=== PATIENT | female | born 1950 | race Caucasian/White ===

== ENCOUNTER 2021-09-15 09:25 | Inpatient (IN) | payer MEDICARE ==
[~2021-09-15] VITALS: Ht 162.6 cm; Wt 60.3 kg
[2021-09-15] MEDS ORDERED: THYROID MEDICATION (09:36)
--- NOTE | 2021-09-15 12:10 | NUR ---
pt transfered to [facility] in stable condition.
[2021-09-15 12:15] VITALS: BP 164/99
[2021-09-15 16:00] VITALS: BP 172/110
[2021-09-15] MEDS: OLANZAPINE 2.5 MG TABLET PO SCH (19:00)
[2021-09-15] MEDS: DIVALPROEX 125 MG TABLET.DR PO SCH (21:52)
[2021-09-15] MEDS ORDERED: ACETAMINOPHEN 325 MG TABLET PO PRN (23:00)
[2021-09-15] MEDS ORDERED: MAG HYDROX/AL HYDROX/SIMETH 30 ML LIQUID UDC PO PRN (23:00)
[2021-09-15] MEDS ORDERED: ZOLPIDEM 5 MG TABLET PO PRN (23:00)
[2021-09-15] MEDS ORDERED: MAGNESIUM HYDROXIDE 30 ML LIQUID UDC PO PRN (23:00)
--- NOTE | 2021-09-16 04:08 | NUR ---
Received the patient at the start of the shift, walking around in and out of various rooms. Patient was confused and argumentative. Refusing medications and not able to state where she is or why she is here. Despite frequent redirecting, there were minimal results. The patient is up at this time, very little sleep. Paranoid and anxious. Continuing to monitor the patient for safety, reorient as needed and encourage medication compliance.
[2021-09-16 07:30] VITALS: BP 168/95
[2021-09-16] MEDS: DIVALPROEX 125 MG TABLET.DR PO SCH ×2 (09:00→20:53)
[2021-09-16] MEDS: OLANZAPINE 2.5 MG TABLET PO SCH ×2 (09:00→17:22)
--- NOTE | 2021-09-16 10:34 | NUR ---
Firearms Report Second Rigger completed and submitted a [employer] firearms report for 5150 grave disability certifications. A copy of report has been placed in patient chart.
--- NOTE | 2021-09-16 10:45 | NUR ---
Gps/Marketing Communication Manager- Spoke to Reginaldo () requesting to be called at [phone] (cell phone ) Requesting to to talk to Psychiatrist (Dr Menendez) Reassure will inform the Doctor.
[2021-09-16] MEDS ORDERED: OLAN2.5T3 PO (13:17)
[2021-09-16] MEDS ORDERED: HYDR-894 PO (13:17)
--- NOTE | 2021-09-16 14:22 | NUR ---
STEVE Initial Discharge Note Pt currently resides at home at at [address], [place], [place] [address] ([phone]) with her , Jarett Simpson (Skip) ([phone]). Per pt, she would like to be discharged home. Per pt's , he is unable to care for pt safely at home until she gets better. STEVE will continue to work with pt, family, and MD to ensure a safe and proper discharge.
--- NOTE | 2021-09-16 14:23 | NUR ---
SW Family Contact SW spoke with patient's Jarett "Reginaldo" Calvin ([phone]; [phone]) and discussed treatment and discharge plan. Jarett provided collateral information. Jarett states he is unable to care for pt safely in the home until she gets better.
--- NOTE | 2021-09-16 14:25 | NUR ---
SW Care Coordination Received voice mail from Paola ([phone]), hospital liaison with [facility] to establish contact. SW called and left message requesting call back.
[2021-09-16 16:30] VITALS: BP 168/102
[2021-09-16] MEDS: hydrALAZINE HCL 25 MG TABLET PO SCH (17:21)
--- NOTE | 2021-09-16 17:22 | NUR ---
Gps/Coil Connector Repairer- Noted patient interacting with her roommate. Elevated b/p 168/102 HR 92 02 sat 98 , offered hydralazine 10 mg. 1 tab. po. hesitant to take meds., encouraged to take her routine meds, claimed she does not take any medications at home, confused, claimed is waiting outside to take her home. Constant reorientation provided
[2021-09-16 18:52] VITALS: BP 147/89
[2021-09-16 20:45] VITALS: BP 145/71
[2021-09-17 07:30] VITALS: BP 154/96
[2021-09-17] MEDS: hydrALAZINE HCL 25 MG TABLET PO SCH ×2 (09:16→17:00)
[2021-09-17] MEDS: OLANZAPINE 2.5 MG TABLET PO SCH ×2 (09:16→17:00)
[2021-09-17] MEDS: DIVALPROEX 125 MG TABLET.DR PO SCH ×2 (09:16→20:48)
[2021-09-17] MEDS: CEphaleXIN 500 MG CAPSULE PO SCH ×3 (11:30→20:49)
[2021-09-17] MEDS: LORAZEPAM 1 MG TABLET PO PRN (13:21)
--- NOTE | 2021-09-17 14:11 | NUR ---
Gps/Emergency Vehicle Driver- Confused , disorganized, refusing oral abx , revieed with patient, gets angry, argumentative, claimed she does not need anything, "you kept pushing medications i dont need" When tried to explained patient gets loud and upset, noted patient tearing up papers/magazines .putting it in her pocket
--- NOTE | 2021-09-17 17:51 | NUR ---
Gps/Hvac Commercial Salesperson - Refusing Vital signs, refusing pm. routine meds. , anxious, digging into the trash , claimed she is ready to leave now., confused, disoriented, difficulty redirecting patient.
[2021-09-17] MEDS ORDERED: diphenhydrAMINE 50 MG/1 ML VIAL IM ONE (20:00)
[2021-09-17] MEDS ORDERED: HALOPERIDOL LACTATE 5 MG/1 ML VIAL IM ONE (20:00)
[2021-09-17] MEDS ORDERED: LORAZEPAM 2 MG/1 ML VIAL IM ONE (20:00)
--- NOTE | 2021-09-17 23:45 | NUR ---
Received the patient at the start of the shift, labile, combative and in a psychosis. The patient destroyed the room, throwing trash all over, stripping the blankets and sheets off her bed , as well as striking out at staff. This typewriters functional tester was not able to have any reasonable verbal exchange with this patient due to the patients confusion and elevated state. Multiple attempts to deescalate this situation were attempted. The FARM IMPLEMENT ENGINE MECHANIC working for Dr. Talley was notified and orders were received for a one time IM injection. Security was needed and the patient was combative and argumentative despite being approached calmly and provided a full explanation of the procedure. The injection was given without any problems and less than a minute of hands. The patients VS were elevated on the first check, but did become normal when reassessed a short time later. Eventually this patient calmed down, ate a snack and was able to relax and rest. Frequent rounding is being done during this shift. Bed alarm is on and Safety Stratiges are in place at this time. Continuing to monitor for behavior escalation and provide for any needs that may arise.
--- NOTE | 2021-09-18 03:00 | NUR ---
The patient refused all oral medications this shift. Encouragement and education were provided.
[2021-09-18 08:30] VITALS: BP 156/91
[2021-09-18] MEDS: hydrALAZINE HCL 25 MG TABLET PO SCH ×2 (08:31→17:00)
[2021-09-18] MEDS: DIVALPROEX 125 MG TABLET.DR PO SCH ×2 (08:31→21:00)
[2021-09-18] MEDS: OLANZAPINE 2.5 MG TABLET PO SCH ×2 (08:36→17:00)
[2021-09-18] MEDS: CEphaleXIN 500 MG CAPSULE PO SCH ×2 (08:38→21:00)
[2021-09-18] MEDS: ENSURE ENLIVE (VAN) 240 ML LIQUID PO SCH ×2 (13:00→17:00)
--- NOTE | 2021-09-18 22:30 | NUR ---
received patient in the hallway. she is noted A/O x 1. she is noted with disorganized speech, easily irritable, non-compliant with plan of care nd medication regiment. impaired insight and judgment is noted as to the reason for her admission to [facility]. She refused all her [facility] medications. she was informed of the importance to take medication for the improvement of her symptoms, yet refused. she also refused V/S. Patient was given PO fluids and snacks. she is reassured for her safety. safety and fall precaution in place. will continue to monitor.
[2021-09-19] MEDS: DIVALPROEX 125 MG TABLET.DR PO SCH ×2 (08:29→20:57)
[2021-09-19] MEDS: OLANZAPINE 2.5 MG TABLET PO SCH ×2 (08:29→17:32)
[2021-09-19] MEDS: CEphaleXIN 500 MG CAPSULE PO SCH (08:30)
[2021-09-19] MEDS: ENSURE ENLIVE (VAN) 240 ML LIQUID PO SCH ×3 (08:30→17:33)
[2021-09-19] MEDS: hydrALAZINE HCL 25 MG TABLET PO SCH ×2 (08:30→17:00)
[2021-09-19] MEDS ORDERED: levoFLOXacin 500 MG/D5W 500 MG in PREMIXED 1 EACH IV SCH (10:15)
[2021-09-19] MEDS ORDERED: levoFLOXacin 500 MG TABLET PO SCH (12:00)
[2021-09-19 12:54] LABS: *BILIRUBIN,URIN NEGATIVE (NEGATIVE); *BLOOD, URINE NEGATIVE (NEGATIVE); *CLARITY,URINE CLEAR (CLEAR); *COLOR,URINE YELLOW (YELLOW); *KETONES,URINE NEGATIVE (NEGATIVE); *UROBILINOGEN,URINE 0.2 E.U./dl (NORMAL); LEUKOCYTE ESTERASE ,URINE NEGATIVE (NEGATIVE); NITRITE, URINE NEGATIVE (NEGATIVE); UGLUCOSE NEGATIVE (NEGATIVE)
--- NOTE | 2021-09-19 15:00 | NUR ---
I was called to court hearing over the phone, with the reliability specialist, and [place] from patient's rights. Electrical Cad Technician granted 14 days hold for this patient under Gravely disabled criteria.
[2021-09-20] MEDS: OLANZAPINE 2.5 MG TABLET PO SCH ×2 (09:00→16:51)
[2021-09-20] MEDS: ENSURE ENLIVE (VAN) 240 ML LIQUID PO SCH ×3 (09:00→16:51)
[2021-09-20] MEDS: DIVALPROEX 125 MG TABLET.DR PO SCH ×2 (09:00→20:39)
[2021-09-20] MEDS: hydrALAZINE HCL 25 MG TABLET PO SCH ×2 (09:00→16:51)
--- NOTE | 2021-09-20 09:58 | NUR ---
GPS: Nursing Notes: Severe Agitation: Patient is awake and responding to her name, loud and pressured speech, overly disruptive by shouting and threatening staff, Slamming the nursing station door, went to the TV room and started to punch the TV screen, AWOL risk, shouting that she is leaving today..."The doctor discharge me today... You are a fucken liar..", redirected and reoriented, but unable to be redirected, restless behavior, paranoid behavior, refusing her medications, believes that we are poisoning her, loud and angry affect, continue to monitor for safety, Dr. Menendez called by the charge nurse, continue with treatment plan.
[2021-09-20] MEDS ORDERED: OLANZAPINE 10 MG VIAL IM ONE (10:00)
--- NOTE | 2021-09-20 10:11 | NUR ---
GPS: Nursing Notes: Chemical Restraint: Patient is awake and overly disruptive by shouting and threatening staff, slamming nursing station door, going into the dinning room and punching the TV screen, loud and angry affect, "I am going to get you for what you did last night..", "I am going to bhavana you..", AWOL risk, "I am leaving today... The doctor had discharge me...", paranoid, believes that staff is trying to poison her, refusing her medications, R=18, medication IM given at this time: Zyprexa 5mg IM STAT, continue to monitor for safety, continue with treatment plan.
--- NOTE | 2021-09-20 10:41 | NUR ---
GPS: Nursing Notes: Reassessment of Chemical Restraint: Patient is awake and responding to her name, patient became calm, stopped carrying around paper bag when walking the hallway, R=18, medication IM was effective, continue to monitor for safety, continue with treatment plan.
--- NOTE | 2021-09-20 14:37 | NUR ---
SW Care Coordination Note SW received voice mail from Paola with [facility] (phone: [phone]; fax: [phone]) informing pt is pending enrollment into [facility] services. Paola requested any updates regarding discharge and discharge paperwork upon pt discharge.
--- NOTE | 2021-09-20 17:35 | NUR ---
GPS: Nursing Notes: Non-Compliance With Medications: Patient is awake and responding to her name, paranoid behavior, refusing her medications, believes that we are trying to poison her, threatening staff with a law bhavana, believes that the psychiatrist had discharge today, walking around with her belongings in a paper bag, loud and angry affect, episode of slamming the nursing station door, gets easily irritable when redirected, believes that staff is lying to her, verbal abusive toward staff at times, stated, "Patient's right have told her not take her medications.. He is coming to talk with me..", continue to monitor for safety, unable to formulate a viable plan for self care, continue with treatment plan.
--- NOTE | 2021-09-21 06:48 | NUR ---
Slept intermittently. Woke up a few times to say "the children were keeping her up." When asked if she was hearing any voices, pt stated that she heard the children playing but did not give specific examples of dialogue. Pt provided with reorientation and was able to go back to sleep. Denies SI or HI. Safety provided. Will endorse to day shift.
[2021-09-21] MEDS: DIVALPROEX 125 MG TABLET.DR PO SCH ×2 (09:00→21:15)
[2021-09-21] MEDS: hydrALAZINE HCL 25 MG TABLET PO SCH ×2 (09:00→16:33)
[2021-09-21] MEDS: ENSURE ENLIVE (VAN) 240 ML LIQUID PO SCH ×3 (09:16→17:49)
--- NOTE | 2021-09-21 15:11 | NUR ---
Pt. is received awake in her room. A/O X3 to person, place. Pt. affect is resistant to care, suspicious with medications, delusional "Doctor told me not taking medications today". Pt. refuses medications and vital signs. Pt. ambulates without assistance. Self care. Pt. is encourage to vent feelings and emotions. Fall and safety precautions implemented.
--- NOTE | 2021-09-21 16:34 | NUR ---
Patient keeps refusing vital signs and all medications including blood pressure medication. Pt. states that the doctor told her not taking any meds today.
[2021-09-21] MEDS: OLANZAPINE 5 MG TABLET PO SCH (21:14)
--- NOTE | 2021-09-21 21:45 | NUR ---
patient is still anxious and unable to keep still. lorazepam 1 mg po dose given for anxiety Addendum: 09/21/21 at 2154 by [facility] RN3 RN Lorazepam dose 1 mg po given for agitation and restlessness. sitting on the floor in front of the room and refused to go back to her bed, Addendum: 09/22/21 at 0030 by [facility] RN3 RN refused vital signs.but able to take her medications
--- NOTE | 2021-09-21 22:45 | NUR ---
assisted back to bed, redirected back to bed
[2021-09-22] MEDS: LORAZEPAM 1 MG TABLET PO PRN ×2 (00:34→20:19)
--- NOTE | 2021-09-22 03:30 | NUR ---
woke up and cleaned and kept dry. back to sleep again .
[2021-09-22] MEDS: hydrALAZINE HCL 25 MG TABLET PO SCH ×2 (09:00→16:40)
[2021-09-22] MEDS: ENSURE ENLIVE (VAN) 240 ML LIQUID PO SCH ×3 (09:32→16:40)
[2021-09-22] MEDS: DIVALPROEX 125 MG TABLET.DR PO SCH ×2 (09:32→20:19)
--- NOTE | 2021-09-22 18:08 | NUR ---
Patient is ambulatory. refused the BP med in the am. Compliant with other medication. Safety precaution maintained. Frequent checks done. All due meds given. All needs attended. Will endorse to the next shift for continuity of care.
[2021-09-22 20:14] VITALS: BP 115/69
[2021-09-22] MEDS: OLANZAPINE 5 MG TABLET PO SCH (20:18)
--- NOTE | 2021-09-23 05:45 | NUR ---
Patient woke up early this am, after being incontinent of urine x2 last night. The patient is confused, argumentative with delusions . This senior mortgage underwriter tried many times to reorient this patient to the reality of the situation. D/T the patient being very forgetful, reorientation was non effective. The patient striped her bed and continues with the behavior of digging in the trash. The senior mortgage underwriter assisted patient with a shower and helped with her ADLs. Patient was reluctant to take her medications, but eventually was compliant. Safety stratiges are in place, and staff is monitoring the patient closely for behavior escalation and combativeness. VS are stable, the patient did not refuse last night. Continuing with the plan of care.
[2021-09-23 07:30] VITALS: BP 140/70
[2021-09-23] MEDS: DIVALPROEX 125 MG TABLET.DR PO SCH ×2 (09:10→20:20)
[2021-09-23] MEDS: hydrALAZINE HCL 25 MG TABLET PO SCH ×2 (09:21→17:00)
[2021-09-23] MEDS: ENSURE ENLIVE (VAN) 240 ML LIQUID PO SCH ×3 (09:22→17:39)
--- NOTE | 2021-09-23 14:34 | NUR ---
Gps/Immigration Associate- Patient's Jarett called , wants to speak to Dr Menendez regarding patient's impending discharge plan for Sunday , claimed he has questions that the Psychiatrist can only answer . Jarett () tel.# )
--- NOTE | 2021-09-23 16:20 | NUR ---
STEVE Discharge Note Update Pt currently resides at home located at [address], [place] [address] ) with her , Jarett Simpson [phone]. Pt will be discharged on 09/26/21 at 11am to her current resident by her pickup Chela Lee ([phone]. STEVE will continue to work with pt, family, and MD to ensure a safe, proper discharge.
--- NOTE | 2021-09-23 16:25 | NUR ---
STEVE Family Contact Note STEVE contacted Chela Lee at ([phone]) and confirmed fern picker at discharge at 11am from [facility] and return to her current resident at [address] [place] [address], [place] [address]. STEVE provided Chela with discharge information regarding time and location for pickup.
[2021-09-23 17:03] VITALS: BP 99/48
[2021-09-23] MEDS: OLANZAPINE 5 MG TABLET PO SCH (20:19)
[2021-09-23] MEDS: LORAZEPAM 1 MG TABLET PO PRN (20:19)
[2021-09-23 20:40] VITALS: BP 135/77
--- NOTE | 2021-09-24 04:40 | NUR ---
There are no changes in behavior from the previous night. Patient is still delusional, argumentative, and incontinent during this shift. This abstract writer also noticed that the patient remains paranoid of people steeling things from her. The multiple attempts to reorient and redirect the patient, only led to behavior escalation. The patient was medication compliant however. Continuing to monitor patient for safety and follow plan of care.
[2021-09-24 07:30] VITALS: BP 138/84
[2021-09-24] MEDS: hydrALAZINE HCL 25 MG TABLET PO SCH ×2 (09:00→16:20)
[2021-09-24] MEDS: ENSURE ENLIVE (VAN) 240 ML LIQUID PO SCH ×3 (09:06→16:21)
[2021-09-24] MEDS: DIVALPROEX 125 MG TABLET.DR PO SCH ×2 (09:07→20:27)
[2021-09-24 20:00] VITALS: BP 137/72
[2021-09-24] MEDS: LORAZEPAM 1 MG TABLET PO PRN (20:27)
[2021-09-24] MEDS: OLANZAPINE 5 MG TABLET PO SCH (20:27)
--- NOTE | 2021-09-25 03:56 | NUR ---
Patient is medication compliant and allowed her VS to be taken. Patient remains confused and is incontinent at night. Reorientation provided when needed. Monitoring for safety and behavior escalation.Plan is for discharge on Sunday.
[2021-09-25 07:30] VITALS: BP 157/82
[2021-09-25] MEDS: hydrALAZINE HCL 25 MG TABLET PO SCH ×2 (09:07→16:52)
[2021-09-25] MEDS: DIVALPROEX 125 MG TABLET.DR PO SCH ×2 (09:07→20:03)
[2021-09-25] MEDS: ENSURE ENLIVE (VAN) 240 ML LIQUID PO SCH ×3 (09:07→16:50)
[2021-09-25 15:12] VITALS: BP 138/73
[2021-09-25 20:00] VITALS: BP 134/67
[2021-09-25] MEDS: OLANZAPINE 5 MG TABLET PO SCH (20:03)
[2021-09-25] MEDS: LORAZEPAM 1 MG TABLET PO PRN (22:55)
[2021-09-26 07:30] VITALS: BP 149/103
[2021-09-26 08:00] VITALS: BP 149/103
--- NOTE | 2021-09-26 08:27 | NUR ---
STEVE Discharge Note Pt will be discharged home at [address],[address] via [facility] at 11AM. Chela Lee ([phone]) from [facility] will be picking patient up and transporting home. STEVE spoke with patients Jarett Simpson ([phone]), who states that patient can return home. Pt is aware and agreeable with discharge plans. Pt is alert and oriented x2-3, is unable to plan for self-care at this time. Pt denies any suicidal or homicidal ideation. Pts , Jarett Simpson, is aware and agreeable with discharge plan. Pt will follow-up with [facility] ([phone]). Pt presents with calm mood and congruent affect.
[2021-09-26 10:14] VITALS: BP 149/103
[2021-09-26] MEDS: hydrALAZINE HCL 25 MG TABLET PO SCH (10:14)
[2021-09-26] MEDS: DIVALPROEX 125 MG TABLET.DR PO SCH (10:15)
[2021-09-26] MEDS: ENSURE ENLIVE (VAN) 240 ML LIQUID PO SCH (10:15)
--- NOTE | 2021-09-26 10:39 | NUR ---
SW Family Contact SW spoke with pt's Jarett Simpson ([phone]) and obtained pt's pharmacy information: [facility] located at [address] [place] [phone] ([phone]).
--- NOTE | 2021-09-26 11:45 | NUR ---
GPS: Nursing Notes: Discharge Notes: Patient is awake and responding to his name, cooperative with nursing care, compliant with his medications, denies SI/HI, denies AH/VH, denies pain or discomfort, denies SOB, discharge home with her , picked up by Chela Lee from [facility] transportation, she will take the patient home to the - Jarett [phone]. Patient will follow up with psychiatrist at [facility] and her PCP as soon as possible, instructions and prescription given to patient, took all her belongings with her, escorted on w/c with 2 staffs to help with belongings.
== END 2021-09-26 11:45 | disposition home or self-care (01) | DRG 885 ==
LOC: ER 09:25 → GPS 12:08
PROVIDERS: ADMIT Psychiatry & Neurology Psychiatry; ATTEND Nurse Practitioner Acute Care
DX: F29 Unspecified psychosis not due to a substance or known physiological condition (principal); G93.41 Metabolic encephalopathy; N39.0 Urinary tract infection, site not specified; F03.91 Unspecified dementia, unspecified severity, with behavioral disturbance; E03.9 Hypothyroidism, unspecified; B96.89 Other specified bacterial agents as the cause of diseases classified elsewhere; G47.00 Insomnia, unspecified; I10 Essential (primary) hypertension; Z91.14 Patient's other noncompliance with medication regimen
CPT/HCPCS: 36415; 84443; 86803; 87086; 87806; A4663; J1200; J1630; J2060; J2358